=== PATIENT | male | born 1960 | race Caucasian/White ===

== ENCOUNTER 2018-11-14 09:11 | Inpatient (IN) | payer OTHER ==
[2018-11-14] MEDS ORDERED: IPRATROPIUM-ALBUTEROL 3 ML NEB INHALATION STA ×2 (09:36→21:03)
[2018-11-14] MEDS ORDERED: SODIUM CHLORIDE 0.9% 500 ML 500 ML IV ONE (09:36)
[2018-11-14] MEDS ORDERED: ACETAMINOPHEN TAB 325 MG TAB PO STA (09:36)
[2018-11-14] MEDS ORDERED: SODIUM CHLORIDE 0.9% 1,000 ML IV ONE (09:36)
--- NOTE | 2018-11-14 09:37 | ED ---
General Adult HPI - General Source: patient, RN notes reviewed Mode of arrival: ambulatory Limitations: no limitations <Benedict Sexton - Last Filed: 11/14/18 13:39> <Benito Bowman - Last Filed: 11/14/18 14:07> - General Chief complaint: Urogenital Stated complaint: poss kidney/bladder infection Time Seen by Provider: 11/14/18 09:29 - History of Present Illness Initial comments: This a 58-year-old male presents emergency Department with multiple complaints. Patient states that he denies does not feel well states that he had a fever, achiness diffusely. Patient also states she's had a cough is nonproductive denies any chest pain. Patient states that he has some dysuria and is concerned about possible kidney infection as he has only one functioning kidney. Patient states that his function continues on the right area patient had surgery on his left when he was 16 years old. Patient has not taken any recent Tylenol. Patient denies nausea vomiting diarrhea constipation. (Benedict Sexton) - Related Data Home Medications Medication Instructions Recorded Confirmed No Known Home Medications 11/14/18 11/14/18 Allergies Allergy/AdvReac Type Severity Reaction Status Date / Time shellfish derived [Shellfish] Allergy Unknown Verified 11/14/18 10:16 Sulfa (Sulfonamide Allergy Unknown Verified 11/14/18 10:16 Antibiotics) Review of Systems ROS Other: All systems not noted in ROS Statement are negative. <Benedict Sexton - Last Filed: 11/14/18 13:39> ROS Other: All systems not noted in ROS Statement are negative. <Benito Bowman - Last Filed: 11/14/18 14:07> ROS Statement: Those systems with pertinent positive or pertinent negative responses have been documented in the HPI. Past Medical History Past Medical History: Renal Disease Additional Past Medical History / Comment(s): PT ONLY HAS 1 KIDNEY. History of Any Multi-Drug Resistant Organisms: None Reported Additional Past Surgical History / Comment(s): NEPHRECTOMY. Past Psychological History: Bipolar, Depression Smoking Status: Current every day smoker Past Alcohol Use History: None Reported Past Drug Use History: None Reported <Benedict Sexton - Last Filed: 11/14/18 13:39> General Exam Limitations: no limitations General appearance: alert, in no apparent distress Head exam: Present: atraumatic, normocephalic, normal inspection Eye exam: Present: normal appearance, PERRL, EOMI. Absent: scleral icterus, conjunctival injection, periorbital swelling ENT exam: Present: normal exam, normal oropharynx, mucous membranes moist Neck exam: Present: normal inspection, full ROM. Absent: tenderness, meningismus, lymphadenopathy Respiratory exam: Present: wheezes. Absent: respiratory distress, rales, rhonchi, stridor Cardiovascular Exam: Present: normal rhythm, tachycardia, normal heart sounds. Absent: systolic murmur, diastolic murmur, rubs, gallop, clicks GI/Abdominal exam: Present: soft, normal bowel sounds. Absent: distended, tenderness, guarding, rebound, rigid Back exam: Absent: CVA tenderness (R), CVA tenderness (L) Neurological exam: Present: alert, oriented X3, CN II-XII intact Skin exam: Present: warm, dry, intact, normal color. Absent: rash <Benedict Sexton - Last Filed: 11/14/18 13:39> Vital Signs 11/14/18 11/14/18 11/14/18 09:14 09:45 10:04 Temperature 99 F Pulse Rate 137 H 132 H 128 H Respiratory 18 Rate Blood Pressure 140/86 O2 Sat by Pulse 95 Oximetry 11/14/18 11/14/18 11/14/18 11:21 11:30 12:00 Temperature Pulse Rate 114 H 111 H 109 H Respiratory 22 20 17 Rate Blood Pressure 124/77 124/77 115/74 O2 Sat by Pulse 97 98 97 Oximetry 11/14/18 11/14/18 11/14/18 12:30 13:00 13:30 Temperature Pulse Rate 107 H 103 H 109 H Respiratory 22 23 23 Rate Blood Pressure 104/59 110/72 102/62 O2 Sat by Pulse Oximetry 11/14/18 13:44 Temperature 99.0 F Pulse Rate Respiratory Rate Blood Pressure O2 Sat by Pulse Oximetry EKG Findings - EKG Comments: EKG Findings:: Sinus tachycardia 118. RI 1:30. QRS 74. QT 288. QTC 403. Normal axis. Normal QRS. No acute ST change. <Benito Bowman - Last Filed: 11/14/18 14:07> Medical Decision Making - Lab Data Result diagrams: 11/14/18 10:09 11/14/18 10:09 <Benedict Sexton - Last Filed: 11/14/18 13:39> - Lab Data Result diagrams: 11/14/18 10:09 11/14/18 10:09 <Benito Bowman - Last Filed: 11/14/18 14:07> - Medical Decision Making 58-year-old male presented for fever not feeling well. Patient's found to have right middle lung pneumonia. Patient was started antibiotics and admitted for pyelonephritis and pneumonia. (Benedict Sexton) Case was discussed with practitioner Darshan, chart and results reviewed. Case discussed with Dr. Wallis, who will admit covering for hospital call. (Benito Bowman) - Lab Data Lab Results 11/14/18 11/14/18 11/14/18 Range/Units 10:09 10:09 10:09 WBC 23.9 H (3.8-10.6) k/uL RBC 5.35 (4.30-5.90) m/uL Hgb 16.4 (13.0-17.5) gm/dL Hct 47.9 (39.0-53.0) % MCV 89.6 (80.0-100.0) fL MCH 30.7 (25.0-35.0) pg MCHC 34.2 (31.0-37.0) g/dL RDW 13.1 (11.5-15.5) % Plt Count 142 L (150-450) k/uL Neutrophils % 88 % Lymphocytes % 6 % Monocytes % 5 % Eosinophils % 1 % Basophils % 0 % Neutrophils # 21.1 H (1.3-7.7) k/uL Lymphocytes # 1.3 (1.0-4.8) k/uL Monocytes # 1.1 H (0-1.0) k/uL Eosinophils # 0.2 (0-0.7) k/uL Basophils # 0.1 (0-0.2) k/uL Sodium 137 (137-145) mmol/L Potassium 4.5 (3.5-5.1) mmol/L Chloride 103 (98-107) mmol/L Carbon Dioxide 25 (22-30) mmol/L Anion Gap 9 mmol/L BUN 19 (9-20) mg/dL Creatinine 1.21 (0.66-1.25) mg/dL Est GFR (CKD-EPI)AfAm 77 (>60 ml/min/1.73 sqM) Est GFR (CKD-EPI)NonAf 66 (>60 ml/min/1.73 sqM) Glucose 143 H (74-99) mg/dL Plasma Lactic Acid Nghia 1.3 (0.7-2.0) mmol/L Calcium 9.4 (8.4-10.2) mg/dL Total Bilirubin 1.6 H (0.2-1.3) mg/dL AST 20 (17-59) U/L ALT 23 (21-72) U/L Alkaline Phosphatase 61 (38-126) U/L Total Protein 7.0 (6.3-8.2) g/dL Albumin 4.2 (3.5-5.0) g/dL Urine Color Urine Appearance (Clear) Urine pH (5.0-8.0) Ur Specific Thayer (1.001-1.035) Urine Protein (Negative) Urine Glucose (UA) (Negative) Urine Ketones (Negative) Urine Blood (Negative) Urine Nitrite (Negative) Urine Bilirubin (Negative) Urine Urobilinogen (<2.0) mg/dL Ur Leukocyte Esterase (Negative) Urine RBC (0-5) /hpf Urine WBC (0-5) /hpf Ur Squamous Epith Cells (0-4) /hpf Urine Bacteria (None) /hpf Urine Mucus (None) /hpf Influenza Type A RNA (Not Detectd) Influenza Type B (PCR) (Not Detectd) 11/14/18 11/14/18 Range/Units 10:09 12:42 WBC (3.8-10.6) k/uL RBC (4.30-5.90) m/uL Hgb (13.0-17.5) gm/dL Hct (39.0-53.0) % MCV (80.0-100.0) fL MCH (25.0-35.0) pg MCHC (31.0-37.0) g/dL RDW (11.5-15.5) % Plt Count (150-450) k/uL Neutrophils % % Lymphocytes % % Monocytes % % Eosinophils % % Basophils % % Neutrophils # (1.3-7.7) k/uL Lymphocytes # (1.0-4.8) k/uL Monocytes # (0-1.0) k/uL Eosinophils # (0-0.7) k/uL Basophils # (0-0.2) k/uL Sodium (137-145) mmol/L Potassium (3.5-5.1) mmol/L Chloride (98-107) mmol/L Carbon Dioxide (22-30) mmol/L Anion Gap mmol/L BUN (9-20) mg/dL Creatinine (0.66-1.25) mg/dL Est GFR (CKD-EPI)AfAm (>60 ml/min/1.73 sqM) Est GFR (CKD-EPI)NonAf (>60 ml/min/1.73 sqM) Glucose (74-99) mg/dL Plasma Lactic Acid Nghia (0.7-2.0) mmol/L Calcium (8.4-10.2) mg/dL Total Bilirubin (0.2-1.3) mg/dL AST (17-59) U/L ALT (21-72) U/L Alkaline Phosphatase (38-126) U/L Total Protein (6.3-8.2) g/dL Albumin (3.5-5.0) g/dL Urine Color Yellow Urine Appearance Cloudy (Clear) Urine pH 5.5 (5.0-8.0) Ur Specific Thayer 1.023 (1.001-1.035) Urine Protein 1+ H (Negative) Urine Glucose (UA) Negative (Negative) Urine Ketones Trace H (Negative) Urine Blood Moderate H (Negative) Urine Nitrite Positive (Negative) Urine Bilirubin Negative (Negative) Urine Urobilinogen 2.0 (<2.0) mg/dL Ur Leukocyte Esterase Large H (Negative) Urine RBC 18 H (0-5) /hpf Urine WBC 52 H (0-5) /hpf Ur Squamous Epith Cells 2 (0-4) /hpf Urine Bacteria Many H (None) /hpf Urine Mucus Many H (None) /hpf Influenza Type A RNA Not Detected (Not Detectd) Influenza Type B (PCR) Not Detected (Not Detectd) Disposition <Benedict Sexton - Last Filed: 11/14/18 13:39> <Benito Bowman - Last Filed: 11/14/18 14:07> Clinical Impression: Pyelonephritis, Fever, Pneumonia Disposition: ADMITTED IP TO THIS HOSP Condition: Fair
[2018-11-14 10:20] LABS: Basophils # (A) 0.1 k/uL (0-0.2); Basophils % (A) 0 %; Eosinophils # (A) 0.2 k/uL (0-0.7); Eosinophils % (A) 1 %; HCT 47.9 % (39.0-53.0); HGB 16.4 gm/dL (13.0-17.5); Lymphocytes # (A) 1.3 k/uL (1.0-4.8); Lymphocytes % (A) 6 %; MCH 30.7 pg (25.0-35.0); MCHC 34.2 g/dL (31.0-37.0); MCV 89.6 fL (80.0-100.0); Mean Platelet Volume 7.3; Monocytes # (A) 1.1 k/uL (0-1.0); Monocytes % (A) 5 %; Neutrophils # (A) 21.1 k/uL (1.3-7.7); Neutrophils % (A) 88 %; Platelet Count 142 k/uL (150-450); RBC 5.35 m/uL (4.30-5.90); RDW 13.1 % (11.5-15.5); WBC 23.9 k/uL (3.8-10.6)
[2018-11-14 10:31] LABS: Albumin 4.2 g/dL (3.5-5.0); Calcium 9.4 mg/dL (8.4-10.2); Potassium 4.5 mmol/L (3.5-5.1); Total Bilirubin 1.6 mg/dL (0.2-1.3)
--- NOTE | 2018-11-14 10:50 | XR ---
EXAMINATION TYPE: XR chest 2V DATE OF EXAM: 11/14/2018 COMPARISON: None HISTORY: 58-year-old male with fever TECHNIQUE: PA and lateral views FINDINGS: Heart normal size. Aorta and pulmonary vasculature within normal limits. There is some focal patchy r ight midlung opacity. No other consolidation or pleural effusion. IMPRESSION: Either some focal atelectasis or developing infiltrate at the right midlung.
[2018-11-14] MEDS ORDERED: AZITHROMYCIN 500 MG in SODIUM CHLORIDE 0.9% 250 ML IVPB STA (11:00)
[2018-11-14 13:13] LABS: Appearance,Urine Cloudy (Clear); Bacteria,Urine Many /hpf; Bilirubin,Urine Negative (Negative); Blood,Urine Moderate (Negative); Color,Urine Yellow; Glucose,Urine (UA) Negative (Negative); Ketones,Urine Trace (Negative); Leukocyte Esterase,Urine Large (Negative); Mucus,Urine Many /hpf; Nitrite,Urine Positive (Negative); PH, Urine 5.5 (5.0-8.0); Protein,Urine 1+ (Negative); RBC,Urine 18 /hpf (0-5); Specific Gravity,Urine 1.023 (1.001-1.035); Squamous Epithelial Cell,Urine 2 /hpf (0-4); WBC,Urine 52 /hpf (0-5)
[2018-11-14] MEDS ORDERED: NALOXONE 0.4 MG/ML 1 ML VIAL IV PRN (13:40)
[2018-11-14] MEDS: SODIUM CHLORIDE 0.9% 1,000 ML IV SCH (13:47)
[2018-11-14] MEDS ORDERED: MORPHINE SULFATE 4 MG/ML SYRINGE IV PRN (14:50)
[2018-11-14 14:55] VITALS: BMI 35.2
[2018-11-14] MEDS ORDERED: ALBUTEROL NEBULIZED 2.5 MG/3 ML INHALATION PRN (15:34)
--- NOTE | 2018-11-14 15:38 | P.HPIM ---
History of Present Illness H&P Date: 11/14/18 Chief Complaint: Urosepsis 58-year-old male with PMH of hepatitis C, 1 kidney presents to the ED for generally not feeling well, urinary symptoms along with fever and chills. Patient reports waking up yesterday generally not feeling well. Over the past 2 days he has experienced chills, decreased appetite and right-sided flank pain. Pain has been constant, aching in nature. Pain is 7 out of 10 in severity. Pain has no radiating factors. There are no alleviating or aggravating factors. Patient also reports dysuria and increased frequency. Patient states that he feels the need to go urinate but is unable to do so when he tries. Of note, patient complains of cough productive of clear sputum. Patient states that this is a smoker's cough and has not changed from baseline. Patient also reports a decrease in appetite for duration of 2 days. Patient complains of headache, bitemporal, aggravated with bright lights. He denies any stiff neck. He denies any lower extremity edema, nausea, vomiting, fever, chest pain, shortness of breath, palpitations, changes in bowel habits. Of note, patient smokes one pack of cigarettes daily for greater than 10 years. He denies any illicit drug use or alcohol use. Patient does report a history of hepatitis C that was diagnosed in the past year , lost to follow-up. In the ED, patient was tachycardic to 115. His vital signs were otherwise stable. CBC showed a leukocytosis of 23.9. CMP showed a total bilirubin of 1.6. Urinalysis showed many bacteria, large leukocyte esterase, positive for nitrites. Influenza A and B were negative. Chest x-ray showed focal atelectasis or developing infiltrate in the right middle lung. Patient is admitted for urosepsis, IV antibiotics and possible pneumonia. Review of Systems All systems: negative Past Medical History Past Medical History: Prostate Disorder, Renal Disease Additional Past Medical History / Comment(s): PT ONLY HAS 1 KIDNEY. History of Any Multi-Drug Resistant Organisms: None Reported Additional Past Surgical History / Comment(s): NEPHRECTOMY at 16 years old. Past Anesthesia/Blood Transfusion Reactions: No Reported Reaction Past Psychological History: Bipolar, Depression Smoking Status: Current every day smoker Past Alcohol Use History: None Reported Past Drug Use History: None Reported Medications and Allergies Home Medications Medication Instructions Recorded Confirmed Type No Known Home Medications 11/14/18 11/14/18 History Allergies Allergy/AdvReac Type Severity Reaction Status Date / Time shellfish derived [Shellfish] Allergy Unknown Verified 11/14/18 10:16 Sulfa (Sulfonamide Allergy Unknown Verified 11/14/18 10:16 Antibiotics) Physical Exam Vitals: Vital Signs Temp Pulse Pulse Resp BP BP Pulse Ox 11/14/18 13:58 98.4 F 115 H 16 111/73 92 L 11/14/18 13:44 99.0 F 11/14/18 13:30 109 H 23 102/62 11/14/18 13:00 103 H 23 110/72 11/14/18 12:30 107 H 22 104/59 11/14/18 12:00 109 H 17 115/74 97 11/14/18 11:30 111 H 20 124/77 98 11/14/18 11:21 114 H 22 124/77 97 11/14/18 10:04 128 H 11/14/18 09:45 132 H 11/14/18 09:14 99 F 137 H 18 140/86 95 Intake and Output 11/13/18 11/14/18 11/14/18 22:59 06:59 14:59 Other: Weight 102.058 kg General: [non toxic], [no distress], [appears at stated age] Derm: [warm], [dry] Head: [atraumatic], [normocephalic], [symmetric] Eyes: [EOMI], [no lid lag], [anicteric sclera] Mouth: [no lip lesion], [mucus membranes moist] Cardiovascular: [S1S2 reg], [tachycardia], [positive DP pulse bilateral] Lungs: [Mild wheezing bilateral], [no rhonchi, no rales] , [no accessory muscle use] Abdominal: [soft], [no CVA tenderness bilaterally, nontender to palpation], [no guarding], [no appreciable organomegaly] Ext: [no gross muscle atrophy], [no edema], [no contractures] Neuro: [ CN II-XI grossly intact], [no focal neuro deficits] Psych: [Alert], [oriented], [appropriate affect] Results CBC & Chem 7: 11/14/18 10:09 11/14/18 10:09 Labs: Abnormal Lab Results - Last 24 Hours (Table) 11/14/18 11/14/18 11/14/18 Range/Units 10:09 10:09 12:42 WBC 23.9 H (3.8-10.6) k/uL Plt Count 142 L (150-450) k/uL Neutrophils # 21.1 H (1.3-7.7) k/uL Monocytes # 1.1 H (0-1.0) k/uL Glucose 143 H (74-99) mg/dL Total Bilirubin 1.6 H (0.2-1.3) mg/dL Urine Protein 1+ H (Negative) Urine Ketones Trace H (Negative) Urine Blood Moderate H (Negative) Ur Leukocyte Esterase Large H (Negative) Urine RBC 18 H (0-5) /hpf Urine WBC 52 H (0-5) /hpf Urine Bacteria Many H (None) /hpf Urine Mucus Many H (None) /hpf Thrombosis Risk Factor Assmnt - Choose All That Apply Any of the Below Risk Factors Present?: Yes Each Factor Represents 1 point: Age 41-60 years, Obesity (BMI >25) Other congenital or acquired thrombophilia - If yes, enter type in comment: No Thrombosis Risk Factor Assessment Total Risk Factor Score: 2 Thrombosis Risk Factor Assessment Level: Low Risk Assessment and Plan Assessment: Assessment and Plan 1. Urosepsis 2. Chronic bronchitis 3. Hepatitis C 4. Leukocytosis 5. Elevated bilirubin 6. DVT and GI prophylaxis 1. Urinalysis shows large leukocyte esterase, positive nitrite and many bacteria. Patient is symptomatic with urinary frequency and dysuria. Patient meets sepsis criteria (HR > 100, WBC count, source of infection, tachycardia). Patient is afebrile with a leukocytosis of 23.9. Start ceftriaxone 1 g IV daily. Tylenol as needed for fever. Tylenol and morphine IV as needed for pain control. Will follow urine cultures. Will follow blood cultures. Continue normal saline at 75 mL per hour. Lactic acid is within normal limits. 2. As seen on chest x-ray, possibly atelectasis. Does not have a change in his sputum color or consistency. Start azithromycin 500 mg by mouth daily for total of 3 days. Will follow blood cultures. Oxygen per nasal cannula to maintain an oxygen saturation greater than 92%. Albuterol nebulizer 4 times a day as needed for shortness of breath or wheezing. 3. States he was diagnosed in the past year. Lost to follow-up. Follow hepatitis C panel. 4. Leukocytosis of 23.9 with neutrophilia. Likely secondary to urosepsis. Daily CBC. 5. Elevated bilirubin at 1.6. Likely secondary to hepatitis C and dehydration. Continue normal saline at 75 mL per hour. Daily CMP. 6. SCD boots only. Patient admitted for urosepsis. Continue ceftriaxone. Will follow cultures. Patient is pending clinical improvement.
[2018-11-14] MEDS: ACETAMINOPHEN TAB 325 MG TAB PO PRN (20:46)
[2018-11-15 07:43] LABS: Basophils # (A) 0.1 k/uL (0-0.2); Basophils % (A) 0 %; Eosinophils # (A) 0.2 k/uL (0-0.7); Eosinophils % (A) 1 %; HCT 43.6 % (39.0-53.0); HGB 14.4 gm/dL (13.0-17.5); Lymphocytes # (A) 0.9 k/uL (1.0-4.8); Lymphocytes % (A) 4 %; MCH 30.4 pg (25.0-35.0); MCHC 33.1 g/dL (31.0-37.0); MCV 91.8 fL (80.0-100.0); Mean Platelet Volume 7.2; Monocytes % (A) 5 %; Neutrophils # (A) 18.1 k/uL (1.3-7.7); Neutrophils % (A) 89 %; Platelet Count 121 k/uL (150-450); RBC 4.75 m/uL (4.30-5.90); RDW 13.3 % (11.5-15.5); WBC 20.5 k/uL (3.8-10.6)
[2018-11-15 07:56] LABS: Anion Gap 5 mmol/L; Blood Urea Nitrogen 17 mg/dL (9-20); Calcium 8.6 mg/dL (8.4-10.2); Carbon Dioxide 25 mmol/L (22-30); Chloride 109 mmol/L (98-107); Glucose 114 mg/dL (74-99); Potassium 4.5 mmol/L (3.5-5.1); Sodium 139 mmol/L (137-145)
[2018-11-15] MEDS: IPRATROPIUM-ALBUTEROL 3 ML NEB INHALATION SCH ×4 (08:31→19:00)
[2018-11-15] MEDS: SODIUM CHLORIDE 0.9% 1,000 ML IV SCH ×2 (10:02→17:59)
[2018-11-15] MEDS: AZITHROMYCIN 500 MG TAB PO SCH (10:05)
[2018-11-15] MEDS ORDERED: MORPHINE SULFATE 4 MG/ML SYRINGE IVP STA (12:06)
--- NOTE | 2018-11-15 12:09 | P.PN ---
Subjective Progress Note Date: 11/15/18 Principal diagnosis: Urosepsis, pneumonia Patient was seen and examined. No acute events overnight. Patient reports mild improvement in his urinary symptoms. He complains of urinary frequency but is able to urinate more freely now. Patient continues to complain of right flank pain. He denies any fever or chills. No nausea or vomiting. Objective - Vital Signs Vital signs: Vital Signs Temp 99.1 F 11/15/18 07:38 Pulse 112 H 11/15/18 08:43 Resp 22 11/14/18 23:34 BP 109/63 11/15/18 07:38 Pulse Ox 95 11/15/18 07:38 Intake & Output 11/14/18 11/15/18 11/15/18 18:59 06:59 18:59 Intake Total 1300 Output Total 450 Balance 850 Weight 102.058 kg Intake: Intake, IV Titration 1300 Amount Sodium Chloride 0.9% 1, 1200 000 ml @ 75 mls/hr IV . [id number] CARLOS Rx#:[id number] cefTRIAXone 1 gm In 100 Sodium Chloride 0.9% 50 ml @ 100 mls/hr IVPB ONCE STA Rx#:[id number] Output: Urine 450 Other: Voiding Method Toilet Toilet # Voids 2 2 - Exam General: [non toxic], [no distress], [appears at stated age] Derm: [warm], [dry] Head: [atraumatic], [normocephalic], [symmetric] Eyes: [EOMI], [no lid lag], [anicteric sclera] Mouth: [no lip lesion], [mucus membranes moist] Cardiovascular: [S1S2 reg], [tachycardia], [positive DP pulse bilateral] Lungs: [Mild wheezing bilateral], [no rhonchi, no rales] , [no accessory muscle use] Abdominal: [soft], [no CVA tenderness bilaterally, nontender to palpation], [no guarding], [no appreciable organomegaly] Ext: [no gross muscle atrophy], [no edema], [no contractures] Neuro: [no focal neuro deficits] Psych: [Alert], [oriented], [appropriate affect] - Labs CBC & Chem 7: 11/15/18 07:13 11/15/18 07:13 Labs: Abnormal Lab Results - Last 24 Hours (Table) 11/14/18 11/14/18 11/15/18 Range/Units 12:42 21:35 07:13 WBC 20.5 H (3.8-10.6) k/uL Plt Count 121 L (150-450) k/uL Neutrophils # 18.1 H (1.3-7.7) k/uL Lymphocytes # 0.9 L (1.0-4.8) k/uL D-Dimer 0.88 H (<0.60) mg/L FEU Chloride (98-107) mmol/L Glucose (74-99) mg/dL Urine Protein 1+ H (Negative) Urine Ketones Trace H (Negative) Urine Blood Moderate H (Negative) Ur Leukocyte Esterase Large H (Negative) Urine RBC 18 H (0-5) /hpf Urine WBC 52 H (0-5) /hpf Urine Bacteria Many H (None) /hpf Urine Mucus Many H (None) /hpf 11/15/18 Range/Units 07:13 WBC (3.8-10.6) k/uL Plt Count (150-450) k/uL Neutrophils # (1.3-7.7) k/uL Lymphocytes # (1.0-4.8) k/uL D-Dimer (<0.60) mg/L FEU Chloride 109 H (98-107) mmol/L Glucose 114 H (74-99) mg/dL Urine Protein (Negative) Urine Ketones (Negative) Urine Blood (Negative) Ur Leukocyte Esterase (Negative) Urine RBC (0-5) /hpf Urine WBC (0-5) /hpf Urine Bacteria (None) /hpf Urine Mucus (None) /hpf Microbiology - Last 24 Hours (Table) 11/14/18 12:42 Urine Culture - Preliminary Urine,Voided Assessment and Plan Assessment: Assessment and Plan 1. Urosepsis 2. Chronic bronchitis 3. Hepatitis C 4. Leukocytosis 5. Elevated bilirubin 6. DVT and GI prophylaxis 1. Urinalysis shows large leukocyte esterase, positive nitrite and many bacteria. Patient is symptomatic with urinary frequency and dysuria. Patient meets sepsis criteria (HR > 100, WBC count, source of infection, tachycardia). Patient is afebrile with a leukocytosis of 23.9 (20.5 this morning). Continue ceftriaxone 1 g IV daily. Tylenol as needed for fever. Tylenol and morphine IV as needed for pain control. Will follow urine cultures. Will follow blood cultures. Continue normal saline at 75 mL per hour. Lactic acid is within normal limits. Consult infectious disease for antibiotic choice. 2. As seen on chest x-ray, possibly atelectasis. Does not have a change in his sputum color or consistency. Start azithromycin 500 mg by mouth daily for total of 3 days. Will follow blood cultures. Oxygen per nasal cannula to maintain an oxygen saturation greater than 92%. Albuterol nebulizer 4 times a day as needed for shortness of breath or wheezing. 3. States he was diagnosed in the past year. Lost to follow-up. Follow hepatitis C panel. 4. Leukocytosis of 23.9 to 20.5 with neutrophilia. Likely secondary to urosepsis. Daily CBC. 5. Elevated bilirubin at 1.6. Likely secondary to hepatitis C and dehydration. Continue normal saline at 75 mL per hour. Daily CMP. 6. SCD boots only. Patient admitted for urosepsis. Continue ceftriaxone. Will follow cultures. Infectious disease on board.
[2018-11-15 12:28] LABS: Hepatitis A Antibody IgM Non-Reactive (Non-Reactive); Hepatitis B Core IgM Non-Reactive (Non-Reactive)
[2018-11-15] MEDS: HYDROcodone/APAP 5-325MG 1 EACH TAB PO PRN (12:48)
[2018-11-15] MEDS: ACETAMINOPHEN TAB 325 MG TAB PO PRN (17:57)
[2018-11-16] MEDS: HYDROcodone/APAP 5-325MG 1 EACH TAB PO PRN ×4 (00:02→23:20)
--- NOTE | 2018-11-16 06:21 | CONS ---
CONSULTATION DATE OF SERVICE: 11/15/2018 REASON FOR CONSULTATION: UTI, pneumonia. HISTORY OF PRESENT ILLNESS: The patient is a 58-year-old male with past medical history include chronic hepatitis C. The patient did have history of urinary tract infection and has only one functioning kidney on the right side. The left one was removed when he was 16 years old, presenting to the ER at [facility] with not feeling well, generalized weakness. He said it has been going on for 2 days before he presented to the hospital. The patient denies any headache or URI symptoms. The patient has been complaining of more concentrated and burning of urine and some difficulty with urination as well. The patient has been complaining of pain in the right flank area, more of a dull aching pain 3 to 4 out of 10, and no radiation. Has some nausea but no vomiting and denies any diarrhea. The patient did have a chronic history of smoking and did have a chronic smoker's cough, but denies any worsening sputum production or worsening shortness of breath. With these symptoms, the patient has been evaluated by the ER physician. On arrival to the ER, the patient had a low-grade fever of 99. He did spike a fever of 100.2 this evening. The patient did have influenza serology that was negative. Hepatitis C antibodies were positive. The patient's UA was positive with large leukocyte esterase with 52 WBCs. Chest x-ray raises the possibility of a right mid lung infiltrate. The patient was started on Rocephin and Zithromax. Infectious Disease was consulted for further recommendation regarding antibiotic therapy. REVIEW OF SYSTEMS: Positive points have been mentioned in HPI. Rest of the 14 systems has been negative. PAST MEDICAL HISTORY: Chronic hepatitis C, prostate disorder, bipolar, depression. PAST SURGICAL HISTORY: Left nephrectomy at 16 year old . SOCIAL HISTORY: Positive for smoking, currently smokes about a pack a day. Denies any drinking or drug use. FAMILY HISTORY: No pertinent findings noticed. ALLERGIES: Allergies to SHELLFISH and SULFA. MEDICATIONS: Medications include the patient is currently on Tylenol, Clementon, DuoNeb, Zithromax, Rocephin, morphine sulfate, Narcan, IV fluids. PHYSICAL EXAMINATION: On examination, blood pressure is 115/73 with a pulse of 111, temperature 98, T-max 100.2. He is 95% on 4 L nasal cannula. General description is a middle aged male up in the bed in no distress. No tachypnea or accessory muscle of respiration use. HEENT examination shows no pallor or scleral icterus. Oral mucous membranes dry. No pharyngeal erythema or thrush. NECK: Trachea central. No thyromegaly. LUNGS: Unlabored breathing, decreased breath sounds at the bases. HEART: S1, S2. Regular rate and rhythm. ABDOMEN: Soft, no tenderness. No guarding or rigidity. EXTREMITIES: No edema of feet. SKIN EXAMINATION: No rash or masses palpable. NEUROLOGICAL: The patient is awake, alert, oriented x3. Mood and affect normal. LABS: BUN of 19, creatinine 1.21. Hemoglobin is 14.4, white count 20,000, yesterday's white count 23.9. UA has been positive. Influenza serology has been negative. Chest x-ray report as mentioned above. DIAGNOSTIC IMPRESSION AND PLAN: Patient admitted to the hospital with fever, did have elevated white count. Source is likely urinary tract infection/pyelonephritis in this patient symptom predominantly urinary; however the patient also have a cough, though no worsening sputum production or worsening cough. However, there was some evidence of right mid lung infiltrate with developing community-acquired pneumonia not entirely excluded. PLAN: 1. We will check an ultrasound of his kidneys to make sure no evidence of any structural abnormality. 2. Repeat chest x-ray PA and lateral tomorrow. 3. Obtain sputum for Gram stain culture and sensitivity. 4. Keep the patient on Rocephin 1 gram daily and Zithromax. 5. We will follow up on clinical condition and culture to further adjust medication if needed. Thank you for this consultation. Will follow this patient along with you. MMODL / IJN: [id number] /
[2018-11-16] MEDS: AZITHROMYCIN 500 MG TAB PO SCH (08:21)
--- NOTE | 2018-11-16 09:10 | XR ---
EXAMINATION TYPE: XR chest 2V DATE OF EXAM: 11/16/2018 COMPARISON: 11/14/2018 TECHNIQUE: PA and lateral views submitted. HISTORY: Fever FINDINGS: The lungs are clear and there is no pneumothorax, pleural effusion, or focal pneumonia. Apical pleu ral thickening noted. Hypertrophic and degenerative change of the spine. IMPRESSION: 1. No acute process.
--- NOTE | 2018-11-16 09:17 | US ---
EXAMINATION TYPE: US kidneys/renal and bladder DATE OF EXAM: 11/16/2018 COMPARISON: NONE CLINICAL HISTORY: Recurrent UTI , STRUCTURAL ABNORMALITY. EXAM MEASUREMENTS: Right Kidney: 13.4 x 6.4 x 5.9 cm Left Kidney: removed when patient was 16 Incidental finding of splenomegaly. 13.5cm Right Kidney: cyst noted measuring3.0 x 2.6 x 2.7cm. No hydronephrosis or nephrolithiasis. Left Kidney: removed when patient was 16 Bladder: not fully distended IMPRESSION: 1. Post left nephrectomy with simple appearing right renal cyst measuring 3 cm. No hydronephrosis or nephrolithiasis. 2. Bladder wall is thickened but may be on the basis of incomplete distention correlate clinically to assess for cystitis. 3. Incidental note made of borderline to mild splenomegaly.
[2018-11-16] MEDS: SODIUM CHLORIDE 0.9% 1,000 ML IV SCH ×2 (09:22→19:27)
[2018-11-16] MEDS: IPRATROPIUM-ALBUTEROL 3 ML NEB INHALATION SCH ×4 (09:46→20:52)
[2018-11-16 10:29] LABS: Basophils % (A) 1 %; Eosinophils # (A) 0.2 k/uL (0-0.7); Eosinophils % (A) 2 %; HCT 43.2 % (39.0-53.0); Lymphocytes # (A) 0.7 k/uL (1.0-4.8); Lymphocytes % (A) 8 %; MCH 29.9 pg (25.0-35.0); MCHC 32.4 g/dL (31.0-37.0); MCV 92.3 fL (80.0-100.0); Monocytes # (A) 0.5 k/uL (0-1.0); Monocytes % (A) 5 %; Neutrophils # (A) 7.3 k/uL (1.3-7.7); Neutrophils % (A) 83 %; Platelet Count 114 k/uL (150-450); RBC 4.68 m/uL (4.30-5.90); RDW 13.2 % (11.5-15.5); WBC 8.8 k/uL (3.8-10.6)
--- NOTE | 2018-11-16 17:56 | P.PN ---
Subjective Progress Note Date: 11/16/18 The patient complaining of fatigue today, reportedly very tired denies any chest pain or shortness, low-grade temperature 100.2 earlier this morning, reports improvement of his right flank pain. Objective - Vital Signs Vital signs: Vital Signs Temp 99.1 F 11/16/18 14:23 Pulse 92 11/16/18 15:50 Resp 20 11/16/18 14:23 BP 124/76 11/16/18 14:23 Pulse Ox 97 11/16/18 14:23 Intake & Output 11/15/18 11/16/18 11/16/18 18:59 06:59 18:59 Intake Total 720 600 400 Balance 720 600 400 Intake: Intake, IV Titration 600 600 Amount Sodium Chloride 0.9% 1, 600 600 000 ml @ 75 mls/hr IV . [id number] [facility] Rx#:[id number] Oral 120 400 Other: Voiding Method Toilet Toilet # Voids 3 3 3 - Exam Constitutional: No acute distress, conversant, pleasant Eyes: Anicteric sclerae, moist conjunctiva, no lid-lag, PERRLA ENMT: NC/AT,Oropharynx clear, no erythema, exudates Neck:Supple, FROM, no masses, or JVD, No carotid bruits; No thyromegaly Lungs: Clear to auscultation, Clear to percussion, Normal respiratory effort, no accessory muscle use Cardiovascular: Heart regular in rate and rhythm, No murmurs, gallops, or rubs no peripheral edema Abdominal: Soft Nontender, nom distended, no guarding, no rebound or rigidity, Normoactive bowel sounds No hepatomegaly, No splenomegaly, No palpable mass No abdominal wall hernia noted Skin: Normal temperature, tone, texture, turgor, No induration No subcutaneous nodules, No rash, lesions, No ulcers Extremities:No digital cyanosis No clubbing, Pedal pulses intact and symmetrical Radial pulses intact and symmetrical Normal gait and station, No calf tenderness Psychiatric: Alert and oriented to person, place and time, Appropriate affect Intact judgement Neuro: Muscles Strength 5/5 in all 4 extremities, Sensation to light touch grossly present throughout, Cranial nerves II-XII grossly intact. No focal sensory deficits - Labs CBC & Chem 7: 11/16/18 09:51 11/15/18 07:13 Labs: Abnormal Lab Results - Last 24 Hours (Table) 11/16/18 Range/Units 09:51 Plt Count 114 L (150-450) k/uL Lymphocytes # 0.7 L (1.0-4.8) k/uL Microbiology - Last 24 Hours (Table) 11/14/18 10:09 Blood Culture - Preliminary Blood No Growth after 48 hours 11/14/18 12:42 Urine Culture - Final Urine,Voided Assessment and Plan (1) Sepsis due to urinary tract infection Narrative/Plan: * Urine culture pending * Leukocytosis resolving down from 20.5-8.8 today * ID following continue Rocephin * Chest x-ray were negative for any suggestion of pneumonia, blood cultures have been negative as well Current Visit: Yes Status: Acute Code(s): A41.9 - SEPSIS, UNSPECIFIED ORGANISM; N39.0 - URINARY TRACT INFECTION, SITE NOT SPECIFIED SNOMED Code(s): 058122710 (2) Pyelonephritis Narrative/Plan: * Treatment as above * Renal ultrasound negative for hydronephrosis or nephrolithiasis * Bladder wall thickening consistent with Cystitis Current Visit: Yes Status: Acute Code(s): N12 - TUBULO-INTERSTITIAL NEPHRITIS, NOT SPCF ACUTE OR CHRONIC SNOMED Code(s): 67421450 (3) Hepatitis C, chronic Current Visit: Yes Status: Acute Code(s): B18.2 - CHRONIC VIRAL HEPATITIS C SNOMED Code(s): 036665499 Plan: Anticipated discharge: Likely tomorrow
[2018-11-17 00:53] VITALS: RESP 16
--- NOTE | 2018-11-17 06:31 | PN ---
PROGRESS NOTE DATE OF SERVICE: 11/16/2018. REASON FOR FOLLOWUP: Fever, likely pyelonephritis. INTERVAL HISTORY: The patient overall feels better and has improved. The patient has been breathing more comfortably. He did have some cough, but no worsening. No chest pain. No abdominal pain. No diarrhea. has slightly improved. PHYSICAL EXAMINATION: On examination, blood pressure 125/75 with a pulse of 100, temperature 99.6. He is 98% on 4 L nasal cannula. General description is a middle-aged male lying in bed in no distress. RESPIRATORY SYSTEM: Unlabored breathing with decreased breath sounds in the bases, no wheeze. HEART: S1, S2. Regular rate and rhythm. ABDOMEN: Soft, no tenderness. LABS: Hemoglobin 14, white count 8.8. DIAGNOSTIC IMPRESSION AND PLAN: Patient admitted to the hospital with fever, source is likely right-sided pyelonephritis. Chest x-ray was negative for any pneumonia. Ultrasound of the kidneys bilaterally did not show any of the right kidney. The patient is to continue with Rocephin while waiting for the urine culture to finalize. Continue with supportive care. MMODL / IJN: [id number] /
[2018-11-17] MEDS: IPRATROPIUM-ALBUTEROL 3 ML NEB INHALATION SCH ×2 (08:40→12:09)
[2018-11-17 08:49] VITALS: BP 118/71; TEMP 98.7
[2018-11-17] MEDS: HYDROcodone/APAP 5-325MG 1 EACH TAB PO PRN (09:57)
--- NOTE | 2018-11-17 11:44 | PN ---
PROGRESS NOTE DATE OF SERVICE: 11/17/2018 REASON FOR FOLLOWUP: Urinary tract infection and possible pyelonephritis. INTERVAL HISTORY: The patient is currently afebrile. He has been breathing comfortably. The patient denies having any chest pain or shortness of breath. Occasional cough. No abdominal pain or any diarrhea. PHYSICAL EXAMINATION: On examination, blood pressure is 118/71 with a pulse of 87, temperature 98.7. He is 97% on 4 L nasal cannula. General description is a middle aged male up in the bed in no distress. RESPIRATORY SYSTEM: Unlabored breathing, clear to auscultation anteriorly. HEART: S1, S2. Regular rate and rhythm. ABDOMEN: Soft, no tenderness. LABS: Hemoglobin is 14, white count 8.8. Urine culture has been negative. DIAGNOSTIC IMPRESSION AND PLAN: Patient admitted to the hospital with a fever, source likely right-sided pyelonephritis in this patient who has significant difficult urination. The patient overall improvement on Rocephin with the plan to finish therapy with oral Ceftin 500 twice a day for about 10 days with close outpatient followup. Continue supportive care condition. MMODL / IJN: [id number] /
--- NOTE | 2018-11-17 12:04 | P.DS ---
Providers Date of admission: 11/14/18 13:46 Expected date of discharge: 11/17/18 Attending physician: Rolly Valles MD Consults: 11/15/18 12:05 Consult Physician Urgent Consulting Provider: Gildardo Hdz Consult Reason/Comments: Urinary infection Do you want consulting provider notified?: Yes Primary care physician: Juancho Gaming MD - Discharge Diagnosis(es) (1) Sepsis due to urinary tract infection Current Visit: Yes Status: Acute (2) Pyelonephritis Current Visit: Yes Status: Acute (3) COPD (chronic obstructive pulmonary disease) Current Visit: Yes Status: Acute (4) Hepatitis C, chronic Current Visit: Yes Status: Acute Hospital Course: The patient is a 58-year-old male with a history of chronic hep C with one functioning kidney on the right secondary to prior left nephrectomy that was admitted for sepsis after presenting with fever chills a pronounced leukocytosis of 24, a positive urinalysis revealing positive leuk esterase with 52 wbc's and chest x-ray concerning for right middle lung infiltrate. The patient was started on empiric IV antibiotics with Rocephin and azithromycin and the patient was treated for sepsis presumed secondary to right-sided pyelonephritis and possible pneumonia. Further workup with blood cultures are negative repeat chest x-ray indicated no acute process, urine culture was sent but only grew apparent skin and genital jalil. With treatment the patient's fever broke and his leukocytosis resolved. ID Dr. Hdz was consulted to help antibiotic guidance ultrasound of the bladder was negative for nephrolithiasis or hydronephrosis. The patient was subsequently discharged home in stable condition and and stated that he would follow-up with establishing a PCP. New prescriptions for Ceftin and naproxen were given at discharge. This whole discharge process took approximately 35 minutes. Focused exam Abdomen/ : Soft nontender nondistended nonacute abdomen, no CVA tenderness Patient Condition at Discharge: Good Plan - Discharge Summary Discharge Rx Participant: Yes New Discharge Prescriptions: New Cefuroxime Axetil [Ceftin] 500 mg PO BID 10 Days #20 tab Naproxen 500 mg PO BID-W/MEALS #14 tablet Discharge Medication List Cefuroxime Axetil [Ceftin] 500 mg PO BID 10 Days #20 tab 11/17/18 [Rx] Naproxen 500 mg PO BID-W/MEALS #14 tablet 11/17/18 [Rx] Follow up Appointment(s)/Referral(s): Juancho Gaming MD [Primary Care Provider] - 1-2 days (Please call office to set up new patient appointment.) Gildardo Hdz MD [STAFF PHYSICIAN] - 11/23/18 2:30 pm Patient Instructions/Handouts: Cefuroxime (By mouth), Naproxen (By mouth), Enlarged Prostate (BPH) (DC), Fever in Adults (GEN), Pneumonia (DC) Discharge Disposition: HOME SELF-CARE
[2018-11-17 12:22] VITALS: PULSE 96
[2018-11-17 14:47] LABS: Basophils # (A) 0.1 k/uL (0-0.2); Basophils % (A) 1 %; Eosinophils # (A) 0.2 k/uL (0-0.7); Eosinophils % (A) 3 %; HCT 40.1 % (39.0-53.0); HGB 13.4 gm/dL (13.0-17.5); Lymphocytes # (A) 0.9 k/uL (1.0-4.8); Lymphocytes % (A) 14 %; MCH 30.8 pg (25.0-35.0); MCHC 33.4 g/dL (31.0-37.0); MCV 92.3 fL (80.0-100.0); Mean Platelet Volume 7.9; Monocytes # (A) 0.5 k/uL (0-1.0); Monocytes % (A) 7 %; Neutrophils % (A) 73 %; Platelet Count 143 k/uL (150-450); RBC 4.35 m/uL (4.30-5.90); RDW 13.2 % (11.5-15.5); WBC 6.9 k/uL (3.8-10.6)
== END 2018-11-17 13:03 | disposition home or self-care (01) | DRG 872 ==
LOC: EC 09:11 → 4SSUR 13:46
PROVIDERS: ADMIT Family Medicine; ATTEND Family Medicine
DX: A41.9 Sepsis, unspecified organism (principal); N10 Acute pyelonephritis; B18.2 Chronic viral hepatitis C; E86.0 Dehydration; F17.210 Nicotine dependence, cigarettes, uncomplicated; F32.9 Major depressive disorder, single episode, unspecified; J44.9 Chronic obstructive pulmonary disease, unspecified; N42.9 Disorder of prostate, unspecified; Z87.440 Personal history of urinary (tract) infections; Z90.5 Acquired absence of kidney; Z88.2 Allergy status to sulfonamides; Z91.013 Allergy to seafood
CPT/HCPCS: 36415; 71046; 76770; 80048; 80053; 80074; 81001; 83605; 85025; 85379; 87040; 87086; 87502; 93005; 94640; 94760; 96361; 96365; 96366; 96367; 99284

== ENCOUNTER 2018-12-22 20:46 | Emergency (ER) | payer OTHER ==
[2018-12-22] MEDS ORDERED: SODIUM CHLORIDE 0.9% 500 ML 500 ML IV STA (21:12)
[2018-12-22] MEDS ORDERED: IBUPROFEN 600 MG TAB PO STA (21:12)
[2018-12-22] MEDS ORDERED: ACETAMINOPHEN TAB 500 MG TAB PO STA (21:12)
[2018-12-22] MEDS ORDERED: SODIUM CHLORIDE 0.9% 1,000 ML IV STA (21:12)
--- NOTE | 2018-12-22 21:36 | ED ---
Fever HPI - General Chief Complaint: Fever Stated Complaint: cold,weak,not eating Time Seen by Provider: 12/22/18 21:12 Source: patient, RN notes reviewed, old records reviewed Mode of arrival: ambulatory Limitations: no limitations - History of Present Illness Initial Comments: This is a 58-year-old male to the ER for evaluation because male presents ER for evaluation of fever. Positive fever positive cough positive congestion. Patient is not been feeling well for 2 days. No known sick contacts history of smoking history of COPD. Patient states was is unable to get better with fever shakes and chills. No recent travel history. No nausea vomiting or diarrhea MD Complaint: fever, malaise, weakness -: days(s) (2) Temperature Source: subjective Context: sick contacts, multiple patients with similar symptoms Associated Symptoms: chills, rigors, myalgias, cough, shortness of breath Treatments Prior to Arrival: none - Related Data Home Medications Medication Instructions Recorded Confirmed No Known Home Medications 12/22/18 12/22/18 Allergies Allergy/AdvReac Type Severity Reaction Status Date / Time shellfish derived [Shellfish] Allergy Unknown Verified 12/22/18 21:45 Sulfa (Sulfonamide Allergy Unknown Verified 12/22/18 21:45 Antibiotics) Review of Systems ROS Statement: Those systems with pertinent positive or pertinent negative responses have been documented in the HPI. ROS Other: All systems not noted in ROS Statement are negative. Past Medical History Past Medical History: Prostate Disorder, Renal Disease Additional Past Medical History / Comment(s): PT ONLY HAS 1 KIDNEY. History of Any Multi-Drug Resistant Organisms: None Reported Additional Past Surgical History / Comment(s): NEPHRECTOMY at 16 years old. Past Anesthesia/Blood Transfusion Reactions: No Reported Reaction Past Psychological History: Bipolar, Depression Smoking Status: Current every day smoker Past Alcohol Use History: None Reported Past Drug Use History: None Reported General Exam Limitations: no limitations General appearance: alert, in no apparent distress Head exam: Present: atraumatic, normocephalic, normal inspection Eye exam: Present: normal appearance, PERRL, EOMI. Absent: scleral icterus, conjunctival injection, periorbital swelling ENT exam: Present: normal exam, mucous membranes moist Neck exam: Present: normal inspection. Absent: tenderness, meningismus, lymphadenopathy Respiratory exam: Present: wheezes, decreased breath sounds, prolonged expiratory. Absent: respiratory distress, rales, rhonchi, stridor Cardiovascular Exam: Present: normal rhythm, tachycardia, normal heart sounds. Absent: systolic murmur, diastolic murmur, rubs, gallop, clicks GI/Abdominal exam: Present: soft, normal bowel sounds. Absent: distended, tenderness, guarding, rebound, rigid Extremities exam: Present: normal inspection, full ROM, normal capillary refill. Absent: tenderness, pedal edema, joint swelling, calf tenderness Back exam: Present: normal inspection Neurological exam: Present: alert, oriented X3, CN II-XII intact Psychiatric exam: Present: normal affect, normal mood Skin exam: Present: warm, dry, intact, normal color. Absent: rash Course Vital Signs 12/22/18 12/22/18 12/22/18 20:56 23:20 23:33 Temperature 100 F H 98.8 F Pulse Rate 120 H 93 92 Respiratory 20 18 Rate Blood Pressure 112/81 108/69 O2 Sat by Pulse 96 94 L Oximetry 12/22/18 23:40 Temperature Pulse Rate 92 Respiratory Rate Blood Pressure O2 Sat by Pulse Oximetry - Reevaluation(s) Reevaluation #1: 12/22/18 23:10 Medical record reviewed Reevaluation #2: 12/22/18 23:10 Mildly improved with symptomatic management Medical Decision Making - Medical Decision Making 58 male the ER for evaluation, fever or flulike symptoms. Patient will be treated on outpatient oral hydration, encouraged increased Motrin Tylenol as well as by mouth intake. Patient can be discharged home - Lab Data Result diagrams: 12/22/18 21:57 12/22/18 21:57 Lab Results 12/22/18 12/22/18 12/22/18 Range/Units 21:57 21:57 21:57 WBC 9.6 (3.8-10.6) k/uL RBC 5.47 (4.30-5.90) m/uL Hgb 16.2 (13.0-17.5) gm/dL Hct 49.0 (39.0-53.0) % MCV 89.7 (80.0-100.0) fL MCH 29.7 (25.0-35.0) pg MCHC 33.1 (31.0-37.0) g/dL RDW 14.0 (11.5-15.5) % Plt Count 119 L (150-450) k/uL Neutrophils % 78 % Lymphocytes % 12 % Monocytes % 6 % Eosinophils % 1 % Basophils % 0 % Neutrophils # 7.5 (1.3-7.7) k/uL Lymphocytes # 1.2 (1.0-4.8) k/uL Monocytes # 0.6 (0-1.0) k/uL Eosinophils # 0.1 (0-0.7) k/uL Basophils # 0.0 (0-0.2) k/uL PT (9.0-12.0) sec INR (<1.2) APTT (22.0-30.0) sec Sodium 135 L (137-145) mmol/L Potassium 4.6 (3.5-5.1) mmol/L Chloride 102 (98-107) mmol/L Carbon Dioxide 23 (22-30) mmol/L Anion Gap 10 mmol/L BUN 18 (9-20) mg/dL Creatinine 1.23 (0.66-1.25) mg/dL Est GFR (CKD-EPI)AfAm 75 (>60 ml/min/1.73 sqM) Est GFR (CKD-EPI)NonAf 65 (>60 ml/min/1.73 sqM) Glucose 98 (74-99) mg/dL Plasma Lactic Acid Nghia 0.8 (0.7-2.0) mmol/L Calcium 8.7 (8.4-10.2) mg/dL Phosphorus 3.5 (2.5-4.5) mg/dL Magnesium 1.9 (1.6-2.3) mg/dL Total Bilirubin 1.0 (0.2-1.3) mg/dL AST 38 (17-59) U/L ALT 35 (21-72) U/L Alkaline Phosphatase 52 (38-126) U/L Troponin I (0.000-0.034) ng/mL Total Protein 6.2 L (6.3-8.2) g/dL Albumin 3.9 (3.5-5.0) g/dL Influenza Type A RNA (Not Detectd) Influenza Type B (PCR) (Not Detectd) 12/22/18 12/22/18 12/22/18 Range/Units 21:57 21:57 23:01 WBC (3.8-10.6) k/uL RBC (4.30-5.90) m/uL Hgb (13.0-17.5) gm/dL Hct (39.0-53.0) % MCV (80.0-100.0) fL MCH (25.0-35.0) pg MCHC (31.0-37.0) g/dL RDW (11.5-15.5) % Plt Count (150-450) k/uL Neutrophils % % Lymphocytes % % Monocytes % % Eosinophils % % Basophils % % Neutrophils # (1.3-7.7) k/uL Lymphocytes # (1.0-4.8) k/uL Monocytes # (0-1.0) k/uL Eosinophils # (0-0.7) k/uL Basophils # (0-0.2) k/uL PT 10.6 (9.0-12.0) sec INR 1.0 (<1.2) APTT 25.9 (22.0-30.0) sec Sodium (137-145) mmol/L Potassium (3.5-5.1) mmol/L Chloride (98-107) mmol/L Carbon Dioxide (22-30) mmol/L Anion Gap mmol/L BUN (9-20) mg/dL Creatinine (0.66-1.25) mg/dL Est GFR (CKD-EPI)AfAm (>60 ml/min/1.73 sqM) Est GFR (CKD-EPI)NonAf (>60 ml/min/1.73 sqM) Glucose (74-99) mg/dL Plasma Lactic Acid Nghia (0.7-2.0) mmol/L Calcium (8.4-10.2) mg/dL Phosphorus (2.5-4.5) mg/dL Magnesium (1.6-2.3) mg/dL Total Bilirubin (0.2-1.3) mg/dL AST (17-59) U/L ALT (21-72) U/L Alkaline Phosphatase (38-126) U/L Troponin I <0.012 (0.000-0.034) ng/mL Total Protein (6.3-8.2) g/dL Albumin (3.5-5.0) g/dL Influenza Type A RNA Not Detected (Not Detectd) Influenza Type B (PCR) Not Detected (Not Detectd) - EKG Data -: EKG Interpreted by Me (EKG shows sinus tachycardia rate 114, TN 136, QRS 76, QTc 405) - Radiology Data Radiology results: report reviewed (Chest x-rays negative for acute disease), image reviewed Disposition Clinical Impression: Fever, COPD (chronic obstructive pulmonary disease), Influenza Disposition: HOME SELF-CARE Condition: Good Instructions (If sedation given, give patient instructions): Fever in Adults (ED), Influenza (ED) Is patient prescribed a controlled substance at d/c from ED?: No Referrals: Juancho Gaming MD [Primary Care Provider] - 1-2 days
--- NOTE | 2018-12-22 22:17 | XR ---
EXAM: XR Chest, 2 Views CLINICAL HISTORY: ITS.REASON XR Reason: Weakness TECHNIQUE: Frontal and lateral views of the chest. COMPARISON: Chest radiograph on 11/16/2018 FINDINGS: Hardware: None. Lungs/pleura: Normal. No focal consolidation. No pleural effusion or pneumothorax. Heart/mediastinum: Normal. No cardiomegaly. Soft tissues: Unremarkable. Bones: No acute fracture. Degenerative changes of the acromioclavicular joints and spine. Upper abdomen: Normal. IMPRESSION: No focal consolidation.
[2018-12-22 22:18] LABS: Basophils % (A) 0 %; Eosinophils # (A) 0.1 k/uL (0-0.7); Eosinophils % (A) 1 %; HGB 16.2 gm/dL (13.0-17.5); Lymphocytes # (A) 1.2 k/uL (1.0-4.8); Lymphocytes % (A) 12 %; MCH 29.7 pg (25.0-35.0); MCHC 33.1 g/dL (31.0-37.0); MCV 89.7 fL (80.0-100.0); Mean Platelet Volume 7.3; Monocytes # (A) 0.6 k/uL (0-1.0); Monocytes % (A) 6 %; Neutrophils # (A) 7.5 k/uL (1.3-7.7); Neutrophils % (A) 78 %; Platelet Count 119 k/uL (150-450); RBC 5.47 m/uL (4.30-5.90); WBC 9.6 k/uL (3.8-10.6)
[2018-12-22 22:27] LABS: Partial Thromboplastin Time 25.9 sec (22.0-30.0); Prothrombin Time 10.6 sec (9.0-12.0)
[2018-12-22 22:40] LABS: Albumin 3.9 g/dL (3.5-5.0); Calcium 8.7 mg/dL (8.4-10.2); Magnesium 1.9 mg/dL (1.6-2.3); Phosphorus 3.5 mg/dL (2.5-4.5); Potassium 4.6 mmol/L (3.5-5.1); Total Protein 6.2 g/dL (6.3-8.2)
[2018-12-22] MEDS ORDERED: DEXAMETHASONE SOD PHOSPHATE 10 MG/ML 1 ML VIAL IV STA (23:05)
[2018-12-22] MEDS ORDERED: IPRATROPIUM-ALBUTEROL 3 ML NEB INHALATION STA (23:05)
[2018-12-22 23:21] VITALS: BP 108/69; RESP 18; TEMP 98.8
[2018-12-22 23:36] VITALS: PULSE 92
== END 2018-12-23 00:11 | disposition home or self-care (01) ==
LOC: EC 20:46
DX: J44.9 Chronic obstructive pulmonary disease, unspecified (principal); J11.1 Influenza due to unidentified influenza virus with other respiratory manifestations; R00.0 Tachycardia, unspecified; F17.200 Nicotine dependence, unspecified, uncomplicated; Z88.2 Allergy status to sulfonamides; Z91.013 Allergy to seafood; Z90.5 Acquired absence of kidney
CPT/HCPCS: 36415; 94640; 93005; 80053; 83605; 83735; 84100; 84484; 85025; 85610; 85730; 87040; 87502; 71046; 99284; 96374; 96361; J1100

== ENCOUNTER 2019-07-31 02:24 | Inpatient (IN) | payer OTHER ==
[2019-07-31] MEDS ORDERED: IPRATROPIUM-ALBUTEROL 3 ML NEB INHALATION STA (02:55)
[2019-07-31] MEDS ORDERED: ACETAMINOPHEN TAB 325 MG TAB PO STA (03:25)
--- NOTE | 2019-07-31 03:33 | XR ---
EXAMINATION TYPE: XR chest 2V DATE OF EXAM: 07/31/2019 COMPARISON: 12/22/2018 HISTORY: Short of breath TECHNIQUE: Frontal and lateral views of the chest are obtained. FINDINGS: There is a 4 cm area of poorly marginated infiltrate in the lateral aspect of the right mi dlung that is probably in the right upper lobe. The other lung mcadams are clear. Heart and mediastinu m are normal. Diaphragm is normal. There are chest leads. Bony thorax is intact. IMPRESSION: There is new right upper lobe pneumonia compared to last exam. Normal heart.
[2019-07-31 03:34] LABS: HCT 49.8 % (39.0-53.0); HGB 17.2 gm/dL (13.0-17.5); MCH 31.9 pg (25.0-35.0); MCHC 34.6 g/dL (31.0-37.0); MCV 92.4 fL (80.0-100.0); Mean Platelet Volume 6.6; Platelet Count 169 k/uL (150-450); RBC 5.39 m/uL (4.30-5.90); RDW 13.3 % (11.5-15.5); WBC 9.4 k/uL (3.8-10.6)
[2019-07-31 03:51] LABS: Prothrombin Time 10.3 sec (9.0-12.0)
[2019-07-31 03:53] LABS: Albumin 4.5 g/dL (3.5-5.0); Calcium 8.9 mg/dL (8.4-10.2); Total Bilirubin 0.8 mg/dL (0.2-1.3); Total Protein 7.9 g/dL (6.3-8.2)
[2019-07-31 03:59] LABS: Potassium 5.4 mmol/L (3.5-5.1)
[2019-07-31] MEDS ORDERED: PNEUMONIA PROTOCOL UTILIZED 1 EACH MISC PO PRN (04:11)
[2019-07-31] MEDS ORDERED: ALBUTEROL NEBULIZED 2.5 MG/3 ML INHALATION PRN ×2 (04:17→13:51)
[2019-07-31 04:23] LABS: Band Neutrophils % 14 %; Basophils # (M) 0.09 k/uL (0-0.2); Large Platelets Present; Lymphocytes # (M) 2.16 k/uL (1.0-4.8); Metamyelocytes # (M) 0.09 k/uL (0); Metamyelocytes % 1 %; Monocytes # (M) 0.85 k/uL (0-1.0); Neutrophils % (M) 54 %; Nucleated Red Blood Cells 0 /100 WBC (0-0); Total Cells Counted 200
--- NOTE | 2019-07-31 04:28 | ED ---
General Adult HPI - General Chief complaint: Upper Respiratory Infection Stated complaint: not feeling well Time Seen by Provider: 07/31/19 02:38 Source: patient Mode of arrival: ambulatory Limitations: no limitations - History of Present Illness Initial comments: This patient is a 59-year-old man with history of COPD and previous pneumonia. He states that over the past couple of days he has had increasing cough, some shortness of breath and then was getting progressively worse over the course of last night. He also is having sharp chest pains mainly when he coughs. The patient states that the cough has been productive of yellow to green sputum. No hemoptysis. No change in urination. No leg pain or swelling. Patient does note that his brother recently had pneumonia. He also states that he has felt warm but did not take his temperature. -: days(s) Radiation: non-radiation Severity scale (1-10): 6 Quality: aching Consistency: intermittent Improves with: none Worsens with: other (Coughing) Associated Symptoms: chest pain, cough, shortness of breath Treatments Prior to Arrival: none - Related Data Home Medications Medication Instructions Recorded Confirmed Albuterol Sulfate [Proventil Hfa] 2 puff INHALATION RT-Q6H PRN 07/31/19 07/31/19 Allergies Allergy/AdvReac Type Severity Reaction Status Date / Time shellfish derived [Shellfish] Allergy Unknown Verified 07/31/19 08:53 Sulfa (Sulfonamide Allergy Unknown Verified 07/31/19 08:53 Antibiotics) Review of Systems ROS Statement: Those systems with pertinent positive or pertinent negative responses have been documented in the HPI. ROS Other: All systems not noted in ROS Statement are negative. Constitutional: Reports: fever (Directive) ENT: Reports: congestion. Denies: throat pain Respiratory: Reports: as per HPI, cough, dyspnea, wheezes. Denies: hemoptysis Cardiovascular: Reports: as per HPI, chest pain Gastrointestinal: Denies: abdominal pain, vomiting, diarrhea, melena, hematochezia Genitourinary: Denies: dysuria, hematuria Musculoskeletal: Denies: back pain Skin: Denies: rash Neurological: Denies: headache, weakness, numbness Psychiatric: Reports: anxiety Hematological/Lymphatic: Denies: easy bleeding Past Medical History Past Medical History: COPD, Prostate Disorder, Renal Disease Additional Past Medical History / Comment(s): PT ONLY HAS 1 KIDNEY. History of Any Multi-Drug Resistant Organisms: None Reported Additional Past Surgical History / Comment(s): NEPHRECTOMY at 16 years old. Past Anesthesia/Blood Transfusion Reactions: No Reported Reaction Past Psychological History: Bipolar, Depression Smoking Status: Current every day smoker Past Alcohol Use History: Occasional Past Drug Use History: None Reported General Exam Limitations: no limitations General appearance: alert, in no apparent distress Head exam: Present: atraumatic Eye exam: Present: normal appearance. Absent: scleral icterus, conjunctival injection ENT exam: Present: normal oropharynx Respiratory exam: Present: wheezes, chest wall tenderness. Absent: respiratory distress, rales, rhonchi, stridor, accessory muscle use, decreased breath sounds, prolonged expiratory Cardiovascular Exam: Present: normal rhythm, tachycardia, normal heart sounds. Absent: systolic murmur, diastolic murmur, rubs, gallop GI/Abdominal exam: Present: soft. Absent: distended, tenderness, guarding, rebound, rigid Extremities exam: Present: normal inspection, normal capillary refill. Absent: pedal edema, calf tenderness Back exam: Present: normal inspection. Absent: CVA tenderness (R), CVA tenderness (L) Neurological exam: Present: alert Skin exam: Present: warm, dry, intact, normal color. Absent: rash Course Vital Signs 07/31/19 07/31/19 07/31/19 02:28 02:43 02:57 Temperature 101.4 F H 100.4 F H 100.3 F H Pulse Rate 120 H Pulse Rate [ 124 H 124 H Apical] Pulse Rate [ Pulse Oximetery ] Respiratory 20 36 H 30 H Rate Blood Pressure 138/86 Blood Pressure 110/82 128/84 [Left Arm Sitting] Blood Pressure [Left Arm] O2 Sat by Pulse 92 L 92 L 95 Oximetry 07/31/19 07/31/19 07/31/19 03:12 03:28 03:30 Temperature 100.4 F H 100.4 F H Pulse Rate 113 H Pulse Rate [ 117 H 107 H Apical] Pulse Rate [ 99 Pulse Oximetery ] Respiratory 26 H 20 Rate Blood Pressure Blood Pressure 128/80 112/58 [Left Arm Sitting] Blood Pressure 123/78 [Left Arm] O2 Sat by Pulse 95 96 Oximetry 07/31/19 07/31/19 07/31/19 03:39 03:55 03:57 Temperature Pulse Rate 116 H 112 H Pulse Rate [ Apical] Pulse Rate [ Pulse Oximetery ] Respiratory 36 H Rate Blood Pressure 110/71 Blood Pressure [Left Arm Sitting] Blood Pressure [Left Arm] O2 Sat by Pulse 88 L 90 L Oximetry 07/31/19 07/31/19 07/31/19 05:11 05:12 05:55 Temperature 99.5 F Pulse Rate 103 H 98 Pulse Rate [ Apical] Pulse Rate [ Pulse Oximetery ] Respiratory 30 H 28 H Rate Blood Pressure 122/86 126/84 Blood Pressure [Left Arm Sitting] Blood Pressure [Left Arm] O2 Sat by Pulse 86 L 92 L 98 Oximetry Medical Decision Making - Medical Decision Making Patient is 59-year-old man with underlying history of COPD, found to have what appears to be a right lung infiltrate. Patient started on antibiotics. Also nebulized treatments here. Patient be admitted for further treatment - Lab Data Result diagrams: 07/31/19 02:50 07/31/19 02:50 Lab Results 07/31/19 07/31/19 07/31/19 Range/Units 02:50 02:50 02:50 WBC 9.4 (3.8-10.6) k/uL RBC 5.39 (4.30-5.90) m/uL Hgb 17.2 (13.0-17.5) gm/dL Hct 49.8 (39.0-53.0) % MCV 92.4 (80.0-100.0) fL MCH 31.9 (25.0-35.0) pg MCHC 34.6 (31.0-37.0) g/dL RDW 13.3 (11.5-15.5) % Plt Count 169 (150-450) k/uL Neutrophils % (Manual) 54 % Band Neutrophils % 14 % Lymphocytes % (Manual) 23 % Monocytes % (Manual) 9 % Basophils % (Manual) 1 % Metamyelocytes % 1 % Neutrophils # (Manual) 6.30 (1.3-7.7) k/uL Lymphocytes # (Manual) 2.16 (1.0-4.8) k/uL Monocytes # (Manual) 0.85 (0-1.0) k/uL Basophils # (Manual) 0.09 (0-0.2) k/uL Metamyelocytes # (Man) 0.09 H (0) k/uL Nucleated RBCs 0 (0-0) /100 WBC Manual Slide Review Performed Large Platelets Present PT (9.0-12.0) sec INR (<1.2) APTT (22.0-30.0) sec Sodium 136 L (137-145) mmol/L Potassium 5.4 H (3.5-5.1) mmol/L Chloride 101 (98-107) mmol/L Carbon Dioxide 24 (22-30) mmol/L Anion Gap 11 mmol/L BUN 21 H (9-20) mg/dL Creatinine 1.25 (0.66-1.25) mg/dL Est GFR (CKD-EPI)AfAm 73 (>60 ml/min/1.73 sqM) Est GFR (CKD-EPI)NonAf 64 (>60 ml/min/1.73 sqM) Glucose 112 H (74-99) mg/dL Plasma Lactic Acid Nghia 1.1 (0.7-2.0) mmol/L Calcium 8.9 (8.4-10.2) mg/dL Total Bilirubin 0.8 (0.2-1.3) mg/dL AST 79 H (17-59) U/L ALT 55 (21-72) U/L Alkaline Phosphatase 66 (38-126) U/L Total Protein 7.9 (6.3-8.2) g/dL Albumin 4.5 (3.5-5.0) g/dL 07/31/19 Range/Units 02:50 WBC (3.8-10.6) k/uL RBC (4.30-5.90) m/uL Hgb (13.0-17.5) gm/dL Hct (39.0-53.0) % MCV (80.0-100.0) fL MCH (25.0-35.0) pg MCHC (31.0-37.0) g/dL RDW (11.5-15.5) % Plt Count (150-450) k/uL Neutrophils % (Manual) % Band Neutrophils % % Lymphocytes % (Manual) % Monocytes % (Manual) % Basophils % (Manual) % Metamyelocytes % % Neutrophils # (Manual) (1.3-7.7) k/uL Lymphocytes # (Manual) (1.0-4.8) k/uL Monocytes # (Manual) (0-1.0) k/uL Basophils # (Manual) (0-0.2) k/uL Metamyelocytes # (Man) (0) k/uL Nucleated RBCs (0-0) /100 WBC Manual Slide Review Large Platelets PT 10.3 (9.0-12.0) sec INR 1.0 (<1.2) APTT 25.0 (22.0-30.0) sec Sodium (137-145) mmol/L Potassium (3.5-5.1) mmol/L Chloride (98-107) mmol/L Carbon Dioxide (22-30) mmol/L Anion Gap mmol/L BUN (9-20) mg/dL Creatinine (0.66-1.25) mg/dL Est GFR (CKD-EPI)AfAm (>60 ml/min/1.73 sqM) Est GFR (CKD-EPI)NonAf (>60 ml/min/1.73 sqM) Glucose (74-99) mg/dL Plasma Lactic Acid Nghia (0.7-2.0) mmol/L Calcium (8.4-10.2) mg/dL Total Bilirubin (0.2-1.3) mg/dL AST (17-59) U/L ALT (21-72) U/L Alkaline Phosphatase (38-126) U/L Total Protein (6.3-8.2) g/dL Albumin (3.5-5.0) g/dL Disposition Clinical Impression: Pneumonia, COPD (chronic obstructive pulmonary disease) Disposition: ADMITTED IP TO THIS HOSP Condition: Fair
[2019-07-31] MEDS: SODIUM CHLORIDE 0.9% 1,000 ML IV SCH (05:08)
[2019-07-31 06:55] LABS: Appearance,Urine Clear (Clear); Bilirubin,Urine Negative (Negative); Blood,Urine Negative (Negative); Color,Urine Yellow; Glucose,Urine (UA) Negative (Negative); Ketones,Urine Negative (Negative); Leukocyte Esterase,Urine Negative (Negative); Mucus,Urine Few /hpf; Nitrite,Urine Negative (Negative); PH, Urine 5.5 (5.0-8.0); Protein,Urine 1+ (Negative); RBC,Urine 1 /hpf (0-5); Specific Gravity,Urine 1.029 (1.001-1.035); Squamous Epithelial Cell,Urine 1 /hpf (0-4); Urobilinogen,Urine <2.0 mg/dL (<2.0); WBC,Urine 3 /hpf (0-5)
[2019-07-31] MEDS: AZITHROMYCIN 500 MG TAB PO SCH (08:28)
[2019-07-31] MEDS: IPRATROPIUM-ALBUTEROL 3 ML NEB INHALATION SCH ×5 (09:09→20:40)
[2019-07-31] MEDS ORDERED: IPRATROPIUM-ALBUTEROL 3 ML NEB INHALATION PRN (09:54)
[2019-07-31] MEDS: ACETAMINOPHEN TAB 325 MG TAB PO PRN ×2 (10:16→16:03)
[2019-07-31] MEDS: BUDESONIDE 0.5 MG/2 ML NEBU INHALATION SCH ×2 (12:28→20:40)
--- NOTE | 2019-07-31 14:28 | HP ---
HISTORY AND PHYSICAL CHIEF COMPLAINT: 2-day history of cough, shortness of breath, and chills. HISTORY OF PRESENT ILLNESS: This gentleman presented to the emergency room with shortness of breath, cough, and chills with purulent sputum production and was found to have a right upper lobe pneumonitis. He has had no hemoptysis. He has otherwise been in fairly good health. REVIEW OF SYSTEMS: He has had no seizures, headaches, blackouts, chest pain, heart disease, etc. He is not on any medication. He is ALLERGIC to SULFA. 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 He smokes about a pack of cigarettes a day. PHYSICAL EXAM: Temp is 98.8 and pulse is 102, respirations 22, and blood pressure is 138/86. GENERAL: He appeared to be well developed and acutely ill. Skin was clammy. Head, ears, eyes, nose, mouth, and throat were normal neck veins not distended. The thyroid was not enlarged. Chest demonstrated decreased breath sounds throughout with extensive rales and rhonchi and a prolonged expiratory phase. Cardiac exam is normal. No murmurs or extra sounds. Abdomen is soft, nontender. Extremities are normal. IMPRESSION: 1. Bronchial pneumonia. 2. Bronchitis. 3. Chronic obstructive pulmonary disease. PLAN: 1. Bed rest. 2. IV fluids. 3. IV antibiotics. 4. Updrafts. SANTOS / LISA: [id number] /
[2019-08-01] MEDS: ACETAMINOPHEN TAB 325 MG TAB PO PRN (02:49)
[2019-08-01] MEDS: SODIUM CHLORIDE 0.9% 1,000 ML IV SCH (02:53)
[2019-08-01] MEDS ORDERED: AZITHROMYCIN 500 MG TAB PO SCH (04:30)
[2019-08-01] MEDS: BUDESONIDE 0.5 MG/2 ML NEBU INHALATION SCH (07:09)
[2019-08-01] MEDS: IPRATROPIUM-ALBUTEROL 3 ML NEB INHALATION SCH ×2 (07:10→10:47)
[2019-08-01 08:25] VITALS: BP 110/67; RESP 16; TEMP 98.9
[2019-08-01] MEDS: AZITHROMYCIN 500 MG TAB PO SCH (08:57)
--- NOTE | 2019-08-01 10:40 | XR ---
EXAMINATION TYPE: XR chest 2V DATE OF EXAM: 08/01/2019 COMPARISON: 07/31/2019 TECHNIQUE: PA and lateral views submitted. HISTORY: Cough possible pneumonia FINDINGS: Right hilar enlargement is seen with right upper lobe consolidation. No pleural effusion or pneumotho rax. Failure. Hypertrophic change of the spine. Mild inflation lungs. IMPRESSION: 1. Right hilar enlargement with areas of right upper lobe consolidation. Differential diagnosis would include right hilar adenopathy with upper lobe pneumonia. Underlying neoplastic process in the diffe rential diagnosis follow-up CT of the chest recommended.
[2019-08-01 10:49] VITALS: PULSE 88
[2019-08-01] MEDS ORDERED: CEPHALEXIN 500 MG CAP PO SCH (13:00)
--- NOTE | 2019-08-01 19:48 | DS ---
DISCHARGE SUMMARY CHIEF COMPLAINT: Cough, congestion, fever and shortness of breath. HISTORY OF PRESENT ILLNESS AND PHYSICAL EXAM: Details of this man's history and physical can be found in the initial workup. LABORATORY STUDIES: While he was in the hospital he had laboratory studies, details of which can be found in the laboratory section of his chart. COURSE IN HOSPITAL: After admission he was placed on bedrest, started on IV fluids and antibiotics with updrafts. He improved greatly and it was felt that he could be discharged on the . He will go home on antibiotic regimen and be seen in the office in several days. FINAL DIAGNOSES: 1. Bronchopneumonia. 2. Chronic obstructive pulmonary disease. OPERATIONS: None. CONSULTATION: None. He is improved. MMODL / UMAN: [id number] /
[2019-08-02] MEDS ORDERED: AZITHROMYCIN 500 MG TAB PO SCH (09:00)
== END 2019-08-01 12:11 | disposition home or self-care (01) | DRG 190 ==
LOC: EC 02:24 → 4SSUR 04:12 → 4MS4W 05:03 → 4SSUR 05:40
PROVIDERS: ADMIT Family Medicine; ATTEND Family Medicine
DX: J44.0 Chronic obstructive pulmonary disease with (acute) lower respiratory infection (principal); J18.0 Bronchopneumonia, unspecified organism; Z79.899 Other long term (current) drug therapy; Z88.2 Allergy status to sulfonamides; Z91.013 Allergy to seafood; Z90.5 Acquired absence of kidney; F17.200 Nicotine dependence, unspecified, uncomplicated; Z87.01 Personal history of pneumonia (recurrent)
CPT/HCPCS: 36415; 71046; 80053; 81001; 83605; 85025; 85610; 85730; 87040; 87086; 87502; 94640; 96365; 99285